=== PATIENT | male | born 1990 | race Two or more races ===

== ENCOUNTER → 2016-11-01 | Outpatient (REF) | payer OTHER | LOC: M SFHCPLAZ 10:22 | PROVIDERS: ATTEND Family Medicine | DX: Z11.3 Encounter for screening for infections with a predominantly sexual mode of transmission (principal) ==

== ENCOUNTER → 2016-11-07 | Outpatient (CLI) | payer OTHER ==
--- NOTE | 2016-11-07 13:21 | REP ---
Clinical: Epididymal cyst. Comparison: None. Technique: Real time price scale and color Doppler evaluation using linear high frequency transducer. Findings: The bilateral testicles and epididymi are relatively normal in contour, size, echogenicity and vascularity. Incidental note is made of a 3.4 mm right epididymal cyst. There is no evidence for acute infectious/inflammatory process, torsion, or mass. No testicular or epididymal mass lesions are appreciated. No hydrocele. No varicocele. Right testicle measures 5.3 x 2.6 x 3.7 cm. Left testicle measures 5.3 x 2.9 x 3.5 cm. Impression: Essentially normal scrotal and testicular ultrasound. Signed by Felix Hess MD 11/07/2016 01:12 P
== END ==
LOC: M RAD 12:39
PROVIDERS: ATTEND Family Medicine
DX: N50.9 Disorder of male genital organs, unspecified (principal)

== ENCOUNTER 2019-02-07 14:42 | Emergency (ER) | payer OTHER, SELFPAY ==
[~2019-02-07] VITALS: Ht 182.9 cm; Wt 81.8 kg
[2019-02-07] MEDS ORDERED: NS 1,000 ML IV ONE (15:00)
[2019-02-07] MEDS ORDERED: ONDANSETRON 4MG/2ML VIAL (J2405) IV ONE (15:00)
[2019-02-07 15:41] LABS: BASO % 0.3 % (0.0-1.0); HEMATOCRIT 49.8 % (42.0-52.0); HEMOGLOBIN 17.7 g/dl (13.5-17.5); LYMPH # 1.3 10^3/uL (1.5-5.0); LYMPH % 10.2 % (24.0-44.0); MEAN CORPUSCULAR HEMOGLOBIN 31.5 pg (27.0-33.0); MEAN CORPUSCULAR HGB CONC 35.5 g/dl (32.0-36.5); MEAN CORPUSCULAR VOLUME 88.6 fl (80.0-96.0); MONO # 0.5 10^3/uL (0.0-0.8); NEUTROPHILS # 10.4 10^3/uL (1.5-8.5); NEUTROPHILS % 85.2 % (36.0-66.0); PLATELET COUNT, AUTOMATED 275 10^3/uL (150-450); RED BLOOD COUNT 5.62 10^6/uL (4.30-6.10); WHITE BLOOD COUNT 12.3 10^3/uL (4.0-10.0)
[2019-02-07 16:08] LABS: ALBUMIN 4.6 GM/DL (3.2-5.2); ALT/SGPT 58 U/L (12-78); BILIRUBIN,DIRECT 0.2 MG/DL (0.0-0.2); BILIRUBIN,TOTAL 0.9 MG/DL (0.2-1.0); BLOOD UREA NITROGEN 16 MG/DL (7-18); CALCIUM LEVEL 10.2 MG/DL (8.5-10.1); CARBON DIOXIDE LEVEL 26 MEQ/L (21-32); CHLORIDE LEVEL 106 MEQ/L (98-107); CREATININE FOR GFR 1.05 MG/DL (0.70-1.30); GLOMERULAR FILTRATION RATE > 60.0 (>60); GLUCOSE, FASTING 113 MG/DL (70-100); LIPASE 65 U/L (73-393); POTASSIUM SERUM 4.5 MEQ/L (3.5-5.1); SODIUM LEVEL 141 MEQ/L (136-145); TOTAL PROTEIN 8.1 GM/DL (6.4-8.2)
[2019-02-07] MEDS ORDERED: ISOVUE-370 76% 100ML VIAL (Q9967) As Ordered ONE (16:55)
--- NOTE | 2019-02-07 18:00 | REPVR ---
PROCEDURE INFORMATION: Exam: CT Abdomen and pelvis with contrast Exam date and time: 02/07/2019 4:58 PM Clinical history: 28 years old, male; Abdominal pain; Generalized; Additional info: R sided abd pain, vomiting TECHNIQUE: Imaging protocol: Computed tomography of the abdomen and pelvis with intravenous contrast. Radiation optimization: All CT scans at this facility use at least one of these dose optimization techniques: automated exposure control; mA and/or kV adjustment per patient size (includes targeted exams where dose is matched to clinical indication); or iterative reconstruction. Contrast material: ISOVUE 370; Contrast volume: 100 ml; Contrast route: IV; COMPARISON: No relevant prior studies available. FINDINGS: Liver: There is a diffuse decrease in hepatic parenchymal density, consistent with fatty infiltration. Gallbladder and bile ducts: Normal. No calcified stones. No ductal dilation. Pancreas: Normal. No ductal dilation. Spleen: Normal. No splenomegaly. Adrenals: Normal. No mass. Kidneys and ureters: Normal. No hydronephrosis. Stomach and bowel: Unremarkable. No obstruction. No mucosal thickening. Appendix: No evidence of appendicitis. Intraperitoneal space: Unremarkable. No free air. No significant fluid collection. Vasculature: Unremarkable. No abdominal aortic aneurysm. Lymph nodes: Unremarkable. No enlarged lymph nodes. Bladder: Unremarkable as visualized. Reproductive: The prostate gland demonstrates mild hyperplasia. Bones/joints: Bulging annulus L5-S1. Mild central spinal stenosis L4-5. Soft tissues: Unremarkable. IMPRESSION: 1. There is a diffuse decrease in hepatic parenchymal density, consistent with fatty infiltration. 2. Mild prostatic hyperplasia. Electronically signed by: Chalino Segovia On 02/07/2019 18:00:28 PM
[2019-02-07] MEDS ORDERED: ZOFR4TAB16 PO (18:17)
[2019-02-07 18:30] VITALS: BP 145/62
== END 2019-02-07 18:48 | disposition home or self-care (01) ==
LOC: M ED 14:42
DX: R11.10 Vomiting, unspecified (principal); F17.200 Nicotine dependence, unspecified, uncomplicated
CPT/HCPCS: 74177; 80048; 80076; 83690; 85025; 96361; 96374; 99284; J2405; Q9967